=== PATIENT | female | born 1935 | race Caucasian/White ===

== ENCOUNTER 2016-07-27 18:57 | Observation (INO) | payer MEDICARE ==
[~2016-07-27] VITALS: Ht 172.7 cm; Wt 142.4 kg
[2016-07-27 20:17] LABS: HEMOGLOBIN 13.2 gm/dl (12.3-15.3); RED BLOOD COUNT 4.4 M/UL (4.00-5.10); WHITE BLOOD COUNT 12.2 K/UL (4.5-11.0)
[2016-07-29] MEDS ORDERED: METFORMIN HCL1000 M1 PO (01:32)
[2016-07-29] MEDS ORDERED: HYDROXYZINE HCL25 MG PO (01:33)
[2016-07-29] MEDS ORDERED: IBUPROFEN800 MG PO (01:33)
[2016-07-29] MEDS ORDERED: METOPROLOL TAR100 MG PO (01:35)
[2016-07-29] MEDS ORDERED: FUROSEMIDE20 MG PO (01:48)
[2016-07-29] MEDS ORDERED: LEVOTHYROXINE25 MCG PO (01:49)
[2016-07-29] MEDS ORDERED: AMBIEN5 MG PO (01:49)
[2016-07-29] MEDS ORDERED: EDARBI80 MG PO (01:50)
[2016-07-29] MEDS ORDERED: LIPITOR TAB 1010 MG PO (01:51)
[2016-07-29] MEDS ORDERED: LOPRESSOR 50 MG50 MG PO (19:10)
[2016-07-29] MEDS ORDERED: TAMIFLU 75 MG C75 MG PO (19:11)
== END 2016-07-29 19:48 | disposition home or self-care (01) ==
LOC: ER1 18:57 → ZEROF 07-28 14:10 → MED SURG 4 07-28 14:10 → ER1 07-28 19:50 → MED SURG 4 07-28 20:20
PROVIDERS: Emergency Medicine; ADMIT Internal Medicine
DX: J11.1 Influenza due to unidentified influenza virus with other respiratory manifestations (principal); R09.02 Hypoxemia; E11.9 Type 2 diabetes mellitus without complications; I10 Essential (primary) hypertension; E03.9 Hypothyroidism, unspecified; I25.10 Atherosclerotic heart disease of native coronary artery without angina pectoris; E66.9 Obesity, unspecified; E78.5 Hyperlipidemia, unspecified; Z88.1 Allergy status to other antibiotic agents; Z88.8 Allergy status to other drugs, medicaments and biological substances; Z90.49 Acquired absence of other specified parts of digestive tract
CPT/HCPCS: 36415; 36600; 71010; 71020; 80053; 82803; 82962; 83036; 83690; 83880; 84439; 84443; 84484; 85025; 85610; 85730; 93005; 94640; 94664; 96372; 96374; 99285; G0378; J1650; J1815; J2405; J7030; Q0177

== ENCOUNTER → 2016-12-26 | Outpatient (CLI) | payer MEDICARE ==
[~2016-12-26] MED LIST: AMBIEN5 MG PO; EDARBI80 MG PO; FUROSEMIDE20 MG PO; HYDROXYZINE HCL25 MG PO; IBUPROFEN800 MG PO; LEVOTHYROXINE25 MCG PO; LIPITOR TAB 1010 MG PO; LOPRESSOR 50 MG50 MG PO; METFORMIN HCL1000 M1 PO; METOPROLOL TAR100 MG PO; TAMIFLU 75 MG C75 MG PO
== END ==
LOC: HEART 5 14:58
DX: R06.02 Shortness of breath (principal)
CPT/HCPCS: 94060; 94729